=== PATIENT | female | born 1960 | race Hispanic/Latino ===

== ENCOUNTER → 2017-07-23 | Day surgery (SDC) | payer OTHER ==
--- NOTE | 2017-07-22 17:04 | Diagnostic Imaging Report ---
PROCEDURE: Frontal and lateral views of the chest. COMPARISON: None. INDICATIONS: PRE OP FOOT FINDINGS: Lines/tubes: None. Lungs: The lungs are well inflated. Linear opacities in the left lower lung, projecting in the costophrenic angle on the frontal view, likely represent subsegmental atelectasis. There is no evidence of pneumonia or pulmonary edema. Pleura: There is no pleural effusion or pneumothorax. Heart and mediastinum: The heart and the mediastinum are normal. Bones: No acute bony abnormality. IMPRESSION: 1. No acute cardiopulmonary abnormalities. Johny Cooley M.D. Dictated by: Johny Cooley M.D. on 07/22/2017 at 17:12 Electronically approved by: Johny Cooley M.D. on 07/22/2017 at 17:12
[~2017-07-23] MED LIST: BUPIVACAINE HCL 0.5% INJ 30 ML VIAL INJ ONE; CEFAZOLIN SOD 2 GM/D5W 50ML 50 ML IV ONE; DEXAMETHASONE SOD PHOS INJ 4 MG/ML VIAL IV ONE; DEXAMETHASONE SOD PHOS INJ 4 MG/ML VIAL ONE; FENTANYL CITRATE/PF 100MCG/2 ML INJ ONE; KETOROLAC TROMETHAMINE 30 MG/ML VIAL IV ONE; LIDOCAINE HCL 2% LOCAL INJ 5 ML SDV VIAL INJ ONE; METFORMIN HCL500 MG PO; METOCLOPRAMIDE HCL 10 MG/2ML VIAL ONE; MIDAZOLAM HCL 2 MG/2 ML VIAL ONE; NEOSTIGMINE 1 MG/ML 10ML VIAL ONE; ONDANSETRON HCL INJ 2 MG/ML VIAL IV ONE; ONDANSETRON HCL INJ 2 MG/ML VIAL ONE; PROPOFOL IV EMULSION 10 MG/ML 20 ML VIAL IV ONE; SEVOFLURANE INHAL SOLN 250 ML PEN BTL INH ONE
--- NOTE | 2017-07-24 02:08 | Operative Report ---
DATE OF PROCEDURE: July 23, 2017 PREOPERATIVE DIAGNOSIS: Fractured 5th metatarsal, right foot, multiple areas. POSTOPERATIVE DIAGNOSIS: Fractured 5th metatarsal, right foot, multiple areas. TITLE OF OPERATION: Open reduction with internal fixation, 5th metatarsal base and 2nd fracture open reduction internal fixation of 5th metatarsal, midshaft, both on the right foot. ANESTHESIA: General endotracheal. HEMOSTASIS: A right thigh tourniquet at 350 mmHg. PROCEDURE IN DETAIL: The patient was taken to the operating room in a mildly sedated state and placed upon the operating table in the supine position. Following induction of general anesthetic, the right lower extremity is elevated to 60 degrees to exsanguinate before inflating the pneumatic thigh tourniquet at 350 mmHg for good hemostasis. The right lower extremity was placed on the operating table upon performing the following procedure. PROCEDURE #1: Open reduction with internal fixation, 5th metatarsal, midshaft and distally right foot. An approximate 6 cm dorsal lateral incision was placed over the 5th metatarsal. The spiral oblique fracture was noted from an area just proximal to the 5th met head and by spiraling to an area at the proximal one-third of the 5th metatarsal. This spiral oblique fracture was displaced. It was clamped together with a bone clamp. K-wires were advanced and a cannulated screw was advanced across the oblique fracture. A small utility plate was placed across the dorsal aspect of the fixated 5th metatarsal fracture with screw on either side of the fracture fragment in a compression manner that allowed for excellent reaction and fixation of the significantly displaced midshaft fracture. The area was then irrigated and closed with 3-0 Vicryl and 4-0 nylon. Attention was then directed to the 5th metatarsal base styloid process where an avulsion fracture was noted. Incision was placed overlying the peroneal tendon insertion, and that was dissected and reflected free. The 2 separate fracture fragments were reduced with fracture forceps, and the area was temporarily fixated with K-wires. Two bone jessica were then applied to the 5th met base fracture in a compressive manner. The area was irrigated. This was all under fluoroscopy. Deep closure was 3-0 Vicryl. Human tissue allograft was injected in a flowable form to facilitate healing. Three-0 Vicryl and 4-0 nylon and the appropriate mildly compressive dressings were applied. The area was blocked with 0.5 Marcaine. The appropriate mildly compressive dressings with a posterior splint was applied. Released the pneumatic thigh tourniquet and showed a normal hyperemic flush to all digits of the right foot. Patient left the operating room with vital signs stable and in apparent satisfactory condition, having tolerated both anesthetic and procedure very well. Job#: [id number]
== END | disposition home or self-care (01) ==
LOC: OR 10:29
PROVIDERS: ATTEND Podiatrist Foot Surgery
DX: S92.351A Displaced fracture of fifth metatarsal bone, right foot, initial encounter for closed fracture (principal); E66.01 Morbid (severe) obesity due to excess calories; E11.9 Type 2 diabetes mellitus without complications; J44.9 Chronic obstructive pulmonary disease, unspecified; X58.XXXA Exposure to other specified factors, initial encounter
CPT/HCPCS: 28485; 36415; 71020; 76001; 82948; 93005; J1100; J1885; J2001; J2250; J2405; J2710; J2765

== ENCOUNTER 2022-03-25 21:19 | Inpatient (IN) | payer OTHER ==
[~2022-03-25] VITALS: Ht 165.1 cm; Wt 104.3 kg
[~2022-03-25 21:19] MED LIST changes: -BUPIVACAINE HCL 0.5% INJ 30 ML VIAL INJ ONE; -CEFAZOLIN SOD 2 GM/D5W 50ML 50 ML IV ONE; -DEXAMETHASONE SOD PHOS INJ 4 MG/ML VIAL IV ONE; -DEXAMETHASONE SOD PHOS INJ 4 MG/ML VIAL ONE; -FENTANYL CITRATE/PF 100MCG/2 ML INJ ONE; -KETOROLAC TROMETHAMINE 30 MG/ML VIAL IV ONE; -LIDOCAINE HCL 2% LOCAL INJ 5 ML SDV VIAL INJ ONE; -METOCLOPRAMIDE HCL 10 MG/2ML VIAL ONE; -MIDAZOLAM HCL 2 MG/2 ML VIAL ONE; -NEOSTIGMINE 1 MG/ML 10ML VIAL ONE; -ONDANSETRON HCL INJ 2 MG/ML VIAL IV ONE; -ONDANSETRON HCL INJ 2 MG/ML VIAL ONE; -PROPOFOL IV EMULSION 10 MG/ML 20 ML VIAL IV ONE; -SEVOFLURANE INHAL SOLN 250 ML PEN BTL INH ONE
[2022-03-25] MEDS ORDERED: ALBUTEROL/IPRATROPIUM 3 ML NEB NEB STA ×2 (21:39→22:12)
[2022-03-25] MEDS ORDERED: METHYLPREDNISOLONE SOD SUCC 125 MG/2ML VIAL IV STA (21:39)
[2022-03-25 21:50] LABS: BASOPHILS # (AUTO) 0.1 (0.0-0.1); BASOPHILS % 0.8 % (0.0-1.0); EOSINOPHILS % 7.5 % (0.0-6.0); HEMATOCRIT 42.3 % (34.2-44.1); HEMOGLOBIN 12.8 g/dL (12.0-16.0); LYMPHOCYTES # (AUTO) 3.1 (1.0-3.2); LYMPHOCYTES % 22.5 % (18.0-39.1); MEAN CORPUSCULAR HEMOGLOBIN 26.9 pg (28-32); MEAN CORPUSCULAR HGB CONC 30.3 g/dL (31-35); MEAN CORPUSCULAR VOLUME 89.1 fL (81-99); MONOCYTES # (AUTO) 0.9 (0.2-0.8); MONOCYTES % 6.6 % (4.4-11.3); NEUTROPHILS # (AUTO) 8.5 (2.1-6.9); NEUTROPHILS % 62.2 % (38.7-80.0); PLATELET COUNT 270 x10e3/uL (140-360); RED BLOOD COUNT 4.75 x10e6/uL (3.6-5.1); RED CELL DISTRIBUTION WIDTH 13.4 % (11.7-14.4)
[2022-03-25 22:23] LABS: ALANINE AMINOTRANSFERASE 15 IU/L (0-55); ALBUMIN 3.6 g/dL (3.5-5.0); ALBUMIN/GLOBULIN RATIO 0.9 (0.8-2.0); ALKALINE PHOSPHATASE 91 IU/L (40-150); ANION GAP 16.9 mmol/L (8-16); BLOOD UREA NITROGEN 13 mg/dL (7-26); BUN/CREATININE RATIO 15 (6-25); CALCIUM 9.1 mg/dL (8.4-10.2); CARBON DIOXIDE 25 mmol/L (22-29); CHLORIDE 105 mmol/L (98-107); CREATINE KINASE 172 IU/L (29-168); CREATININE, SERUM 0.84 mg/dL (0.57-1.11); GLUCOSE 198 mg/dL (74-118); POTASSIUM 3.9 mmol/L (3.5-5.1); SODIUM 143 mmol/L (136-145)
[2022-03-25] MEDS ORDERED: SODIUM CHLORIDE 0.9% 1000ML 1,000 ML IV STA (22:34)
[2022-03-25] MEDS ORDERED: Morphine 4mg INJECTION 4 MG/ML INJ IV PRN (23:00)
[2022-03-25] MEDS ORDERED: ONDANSETRON HCL INJ 2MG/ML 2ML 2 MG/ML VIAL IV PRN (23:00)
[2022-03-25] MEDS ORDERED: IOPAMIDOL 370 MG/ML 100 ML INFUS..BTL INJ ONE (23:25)
[2022-03-26] VITALS (8 sets, daily range): BP systolic 112–158; BP diastolic 67–86
[2022-03-26] MEDS ORDERED: RYBELSUS7 MG PO (02:27)
[2022-03-26] MEDS ORDERED: ZETIA10 MG PO (02:27)
[2022-03-26] MEDS ORDERED: CRESTOR10 MG PO (02:27)
[2022-03-26] MEDS ORDERED: NITROFURANTOIN100 MG PO (02:27)
[2022-03-26] MEDS ORDERED: METFORMIN HCL850 MG PO (02:27)
[2022-03-26] MEDS ORDERED: AMLODIPINE BESYL5 MG PO (02:27)
[2022-03-26] MEDS ORDERED: METHYLPREDNISOLONE SOD SUCC 40 MG/ML VIAL 1ML IV SCH (06:00)
[2022-03-26 07:21] LABS: BASOPHILS % 0.3 % (0.0-1.0); EOSINOPHILS % 0.1 % (0.0-6.0); HEMATOCRIT 41.9 % (34.2-44.1); LYMPHOCYTES # (AUTO) 0.7 (1.0-3.2); LYMPHOCYTES % 6.6 % (18.0-39.1); MEAN CORPUSCULAR VOLUME 86.9 fL (81-99); MONOCYTES # (AUTO) 0.1 (0.2-0.8); MONOCYTES % 0.5 % (4.4-11.3); NEUTROPHILS % 91.8 % (38.7-80.0); PLATELET COUNT 246 x10e3/uL (140-360); RED BLOOD COUNT 4.82 x10e6/uL (3.6-5.1); RED CELL DISTRIBUTION WIDTH 13.2 % (11.7-14.4)
[2022-03-26 07:44] LABS: ALBUMIN 3.4 g/dL (3.5-5.0); ALBUMIN/GLOBULIN RATIO 0.9 (0.8-2.0); ANION GAP 15.9 mmol/L (8-16); CALCIUM 8.6 mg/dL (8.4-10.2); CREATININE, SERUM 0.81 mg/dL (0.57-1.11); POTASSIUM 3.9 mmol/L (3.5-5.1)
[2022-03-26] MEDS ORDERED: DEXTROSE 50% SYRINGE 50 ML IV PRN ×2 (08:15→09:30)
[2022-03-26 08:20] LABS: CREATINE KINASE MB 2.7 ng/mL (0-5.0)
[2022-03-26 08:47] LABS: BAND NEUTROPHILS % (MANUAL) 1 %; LYMPHOCYTES % (MANUAL) 4 % (19-48); MONOCYTES % (MANUAL) 1 % (3.4-9.0); NEUTROPHILS % (MANUAL) 94 % (40-74); PLATELET ESTIMATE ADEQUATE; PLATELET MORPHOLOGY COMMENT NORMAL
[2022-03-26] MEDS: INSULIN LISPRO 100 UNIT/1 ML 3ML VIAL SQ SCH ×4 (09:10→21:33)
[2022-03-26] MEDS ORDERED: ALBUTEROL SULFATE HFA 8GM INHALATION AEROSOL INH PRN (09:30)
[2022-03-26] MEDS: METHYLPREDNISOLONE SOD SUCC 40 MG/ML VIAL 1ML IV SCH ×3 (10:04→21:32)
[2022-03-26] MEDS ORDERED: INSULIN REGULAR, HUMAN 100 UNIT/1 ML SQ SCH (11:30)
[2022-03-26] MEDS: MONTELUKAST SODIUM 10 MG TAB PO SCH (11:53)
[2022-03-26] MEDS ORDERED: ACETAMINOPHEN 325 MG TAB PO PRN (12:30)
[2022-03-26] MEDS ORDERED: REMDESIVIR 200MG 200 MG in SODIUM CHLORIDE 0.9% 100 ML IV ONE (13:30)
[2022-03-26] MEDS ORDERED: SODIUM CHLORIDE 0.9% 250ML 250 ML ONE (13:50)
[2022-03-26] MEDS: ENOXAPARIN SOD INJ 40 MG/0.4 ML SYR SC SCH (16:50)
[2022-03-26 17:00] LABS: CREATINE KINASE MB 2.7 ng/mL (0-5.0)
[2022-03-26] MEDS: SIMVASTATIN 20 MG TAB PO SCH (21:32)
[2022-03-26] MEDS: INSULIN GLARGINE 100 UNITS/ML VIAL SQ SCH (21:34)
[2022-03-26] MEDS: SALMETEROL/FLUTICASONE 250/50 INH SCH (21:40)
[2022-03-27] VITALS (7 sets, daily range): BP systolic 113–145; BP diastolic 54–82
[2022-03-27] MEDS: METHYLPREDNISOLONE SOD SUCC 40 MG/ML VIAL 1ML IV SCH ×2 (05:52→21:21)
[2022-03-27] MEDS: SALMETEROL/FLUTICASONE 250/50 INH SCH ×2 (06:36→19:35)
[2022-03-27] MEDS: INSULIN LISPRO 100 UNIT/1 ML 3ML VIAL SQ SCH ×4 (07:30→21:00)
[2022-03-27] MEDS: BENZONATATE 100 MG CAP PO PRN (11:45)
[2022-03-27] MEDS: AZITHROMYCIN 250 MG TAB PO SCH (11:48)
[2022-03-27] MEDS: AMLODIPINE BESYLATE 5 MG TAB PO SCH (11:49)
[2022-03-27] MEDS: MONTELUKAST SODIUM 10 MG TAB PO SCH (11:49)
[2022-03-27] MEDS: REMDESIVIR 100MG 100 MG in SODIUM CHLORIDE 0.9% 100 ML IV SCH (12:51)
[2022-03-27] MEDS: ENOXAPARIN SOD INJ 40 MG/0.4 ML SYR SC SCH (17:25)
[2022-03-27] MEDS: INSULIN GLARGINE 100 UNITS/ML VIAL SQ SCH (21:00)
[2022-03-27] MEDS: SIMVASTATIN 20 MG TAB PO SCH (21:21)
[2022-03-28] VITALS: BP 120/69
[2022-03-28 04:00] VITALS: BP 123/69
[2022-03-28] MEDS: SALMETEROL/FLUTICASONE 250/50 INH SCH (07:02)
[2022-03-28 07:44] VITALS: BP 123/69
[2022-03-28 08:01] VITALS: BP 144/83
[2022-03-28] MEDS: INSULIN LISPRO 100 UNIT/1 ML 3ML VIAL SQ SCH ×2 (08:30→12:23)
[2022-03-28] MEDS: METHYLPREDNISOLONE SOD SUCC 40 MG/ML VIAL 1ML IV SCH (09:31)
[2022-03-28] MEDS: MONTELUKAST SODIUM 10 MG TAB PO SCH (09:32)
[2022-03-28] MEDS: AZITHROMYCIN 250 MG TAB PO SCH (09:32)
[2022-03-28] MEDS: BENZONATATE 100 MG CAP PO PRN (09:32)
[2022-03-28] MEDS: AMLODIPINE BESYLATE 5 MG TAB PO SCH (09:32)
[2022-03-28] MEDS ORDERED: SINGULAIR10 MG PO (10:05)
[2022-03-28] MEDS ORDERED: Benzonatate PO (10:05)
[2022-03-28] MEDS ORDERED: ONDANSETRON HCL 4 MG ORAL DISINTEGRATING TAB PO PRN (10:45)
[2022-03-28 11:58] VITALS: BP 135/76
[2022-03-28] MEDS ORDERED: MEDROL4 MG PO (12:02)
[2022-03-28] MEDS: REMDESIVIR 100MG 100 MG in SODIUM CHLORIDE 0.9% 100 ML IV SCH (12:21)
== END 2022-03-28 14:28 | disposition home or self-care (01) | DRG 177 ==
LOC: ER 21:25 → ERHOLD 23:01 → MED/SURG2 03-26 00:35
PROVIDERS: ADMIT Internal Medicine; ATTEND Internal Medicine
PROC: XW033E5 Introduction of Remdesivir Anti-infective into Peripheral Vein, Percutaneous Approach, New Technology Group 5 (ICD-10-PCS; principal; 2022-03-26)
DX: U07.1 COVID-19 (principal); J96.01 Acute respiratory failure with hypoxia; J44.1 Chronic obstructive pulmonary disease with (acute) exacerbation; I10 Essential (primary) hypertension; E11.9 Type 2 diabetes mellitus without complications; E78.00 Pure hypercholesterolemia, unspecified; E78.5 Hyperlipidemia, unspecified; Z88.5 Allergy status to narcotic agent; Z88.8 Allergy status to other drugs, medicaments and biological substances; Z82.49 Family history of ischemic heart disease and other diseases of the circulatory system; Z80.6 Family history of leukemia; Z85.038 Personal history of other malignant neoplasm of large intestine; Z85.42 Personal history of malignant neoplasm of other parts of uterus; Z79.84 Long term (current) use of oral hypoglycemic drugs
CPT/HCPCS: 36415; 71260; 80053; 82550; 82553; 82948; 83036; 83605; 83690; 83880; 84484; 85025; 85379; 87040; 93005; 94640; 94664; 94760; 94799; 96372; 99284; J0248; J1650; J1815; J2543; J2920; J2930; J7030; J7050; Q9967